=== PATIENT | female | born 1990 | race Caucasian/White ===

== ENCOUNTER 2019-09-07 08:15 | Inpatient (IN) | payer OTHER ==
[2019-09-07 09:17] VITALS: BMI 28.3
[2019-09-07 09:35] LABS: BASO % 0.4 % (0-2.0); EOS % 2.3 % (0-4.5); HEMOGLOBIN 11.9 GM/dL (10.7-15.3); MCH 32.4 pg (25.7-33.7); MCHC 34.1 g/dl (32.0-36.0); MEAN CELL VOLUME 94.8 fl (80-96); MEAN PLT VOLUME 8.5 fl (7.5-11.1); MONO % 8.4 % (3.8-10.2); NEUT % 70.9 % (42.8-82.8); PLATELET COUNT 129 K/MM3 (134-434); RBC 3.69 M/mm3 (3.60-5.2); RDW 13.9 % (11.6-15.6); WHITE BLOOD COUNT 6.7 K/mm3 (4.0-10.0)
[2019-09-07 09:46] LABS: INR 1.01 (0.83-1.09); PROTHROMBIN TIME (PATIENT) 11.9 SEC (9.7-13.0)
[2019-09-07 09:48] LABS: ACTIVATED PTT 31.6 SECONDS (25.2-36.5)
--- NOTE | 2019-09-07 10:00 | HP ---
Past Medical History - Admission Chief Complaint: for induction of labor; s/p IVF History Source: Patient Limitations to Obtaining History: No Limitations - Past Medical History ...: 2 ...Para: 1 ...Term: 1 ...: 0 ...Spon : 0 ...Induced : 0 ...Multiple Gestation: 0 ...LMP: 11/28/18 ... Weeks Gestation by Dates: 40.3 ...EDC by Dates: 09/04/19 - Past Surgical History Past Surgical History: Yes: None Hx Myomectomy: No Hx Transabdominal Cerclage: No - Smoking History Smoking history: Never smoked Have you smoked in the past 12 months: No - Alcohol/Substance Use Hx Alcohol Use: No - Social History Usual Living Arrangement: Yes: With Spouse Home Medications - Allergies Allergies/Adverse Reactions: Allergies Allergy/AdvReac Type Severity Reaction Status Date / Time No Known Allergies Allergy Verified 09/07/19 08:38 - Home Medications Home Medications: Ambulatory Orders Ascorbic Acid [Vitamin C -] 500 mg PO DAILY 09/07/19 Ferrous Sulfate [Iron] 325 mg PO DAILY 09/07/19 Pnv No.95/Ferrous Fum/Folic AC [ Formula] 1 each PO DAILY 09/07/19 Physical Exam - Maternity Vital Signs: Vital Signs Temperature 98.1 F 09/07/19 09:00 Pulse Rate 90 09/07/19 09:00 Respiratory Rate 20 09/07/19 09:00 Blood Pressure 127/73 09/07/19 09:00 O2 Sat by Pulse Oximetry (%) Constitutional: Yes: Well Nourished Eyes: Yes: WNL HENT: Yes: WNL Neck: Yes: WNL Cardiovascular: Yes: WNL Lungs: Normal air movement - Abdominal Exam/OB Number of Fetuses: Single Presentation: Vertex Contractions: No Monitor Mode: External Category: I Accelerations: Uniform Decelerations: None - Vaginal Exam/OB Vaginal Bleediing: No Speculum Exam: No Dilatation (cm): 1.5 cm Effacement (%): 40 Amniotic Membrane Status: Intact Presentation: Vertex/Position Station: -3 - Physical Exam Edema: Yes (1+ edema) - Labs Lab Results: CBC, BMP 09/07/19 09:25 Assessment/Plan at 40 2/7 days gestation, s/p IVF for induction cervidil placed of labor
[2019-09-07] MEDS ORDERED: DINOPROSTONE 10 MG VAGINAL SUPPOSITORY VG ONE ×2 (10:04→21:03)
[2019-09-07 10:09] LABS: BLOOD UREA NITROGEN 5.3 mg/dL (7-18); CALCIUM 8.3 mg/dL (8.5-10.1); CREATININE 0.5 mg/dL (0.55-1.3); POTASSIUM 3.7 mmol/L (3.5-5.1)
[2019-09-07] MEDS: ELECTROLYTE-148 SOLN 1,000 ML IV SCH (18:55)
--- NOTE | 2019-09-07 21:09 | PN ---
Progress Note (short form) - Note Progress Note: patient comfortable; c/o cramps but comfortable:; category one tracing reactive cervix=2-3 cm / 50% effaced/ -2 station I/P: doing well; latent stage of labor cervidil removed and replaced continue induction/ MIKAELA
--- NOTE | 2019-09-08 07:28 | PN ---
Progress Note (short form) - Note Progress Note: Attending note: patient comfortable during the nite; on second cervidil contractions q 4-5 minutes; tracing reactive, category one I/P: will continue with present cervidil continue MIKAELA
[2019-09-08] MEDS: ELECTROLYTE-148 SOLN 1,000 ML IV SCH (10:00)
--- NOTE | 2019-09-08 12:18 | PN ---
Progress Note (short form) - Note Progress Note: progress note: cervix= 3 cm; stretched to 4 cm/60%/_2 cervidil removed category one tracing still latent phase of labor I/P: will start Pitocin
[2019-09-08] MEDS ORDERED: OXYTOCIN 30 UNITS in 0.9% NS 30 UNIT/500 ML INFUS.BAG IVPB ONE (12:36)
[2019-09-08] MEDS: OXYTOCIN 30 UNITS in 0.9% NS 30 UNIT/500 ML INFUS.BAG IVPB SCH (13:15)
[2019-09-08] MEDS ORDERED: FENTANYL/BUPIVACAINE/NS/PF - PCEA - 50 ML DISP.SYRIN EP ONE ×2 (13:49→18:00)
[2019-09-08] MEDS ORDERED: PCA PUMP NR ONE (13:49)
[2019-09-08] MEDS ORDERED: FENTANYL/BUPIVACAINE/NS/PF - PCEA - 50 ML DISP.SYRIN EP SCH (15:15)
[2019-09-08] MEDS ORDERED: NALOXONE HCL 0.4 MG/ML VIAL IVPUSH PRN (15:30)
--- NOTE | 2019-09-08 17:32 | PN ---
Progress Note (short form) - Note Progress Note: patient requested and received epidural cervix= 4cm/ 60% effaced/-2 AROM of clear fluid category one tracing I/P: continue Pitocin
[2019-09-08] MEDS ORDERED: OXYTOCIN 20 UNITS in 0.9% NS 20 UNIT/1,000 ML INFUS.BAG IV ONE (20:59)
[2019-09-08] MEDS ORDERED: BISACODYL 10 MG SUPP.RECT RC PRN (23:21)
[2019-09-08] MEDS ORDERED: WITCH HAZEL 50% (TUCKS) 40 PAD/JAR PAD TP PRN (23:21)
[2019-09-08] MEDS ORDERED: METHYLERGONOVINE MALEATE 0.2 MG/1 ML AMP IM PRN (23:21)
[2019-09-08] MEDS ORDERED: BENZOCAINE 20% 57 GM BOTTLE TP PRN (23:21)
[2019-09-08] MEDS ORDERED: IBUPROFEN 600 MG TABLET (FP) PO PRN (23:21)
[2019-09-08] MEDS ORDERED: BENZOCAINE 28 GM HEMORRHOIDAL OINTMENT TP PRN (23:21)
--- NOTE | 2019-09-08 23:33 | PN ---
Delivery - Delivery Vaginal Delivery: No Problems Type of Anesthesia: Local, Epidural Episiotomy/Laceration: Perineal Extension/lac (small 1st degree perineal laceration) EBL (cc): 350 ( of live baby, =9-9; placenta complete; laceration repaired with 2-0 chromic undr local) Delivery, Single - [place] Feeding Plan Initial Plan: Elected not to breastfeed exclusively throughout hospitalization
[2019-09-09] MEDS: ACETAMINOPHEN 325 MG TABLET (FP) PO PRN ×2 (02:52→12:37)
[2019-09-09 08:55] LABS: BASO % 0.2 % (0-2.0); EOS % 0.1 % (0-4.5); HEMATOCRIT 30.9 % (32.4-45.2); HEMOGLOBIN 10.4 GM/dL (10.7-15.3); LYMPH % 8.7 % (8-40); MCHC 33.5 g/dl (32.0-36.0); MEAN CELL VOLUME 95.6 fl (80-96); MEAN PLT VOLUME 8.9 fl (7.5-11.1); MONO % 8.9 % (3.8-10.2); NEUT % 82.1 % (42.8-82.8); PLATELET COUNT 123 K/MM3 (134-434); RBC 3.24 M/mm3 (3.60-5.2); RDW 13.4 % (11.6-15.6); WHITE BLOOD COUNT 13.7 K/mm3 (4.0-10.0)
--- NOTE | 2019-09-09 12:57 | PN ---
Post Progress Note - Subjective Subjective: PPD#1: + antigen for herrera virus no complains abdomen soft, firm, non tender lochia normal I/P: doing well, s/p + covid-19 home in am Type of Delivery: Vital Signs: Vital Signs Temperature 98.7 F 09/09/19 10:00 Pulse Rate 85 09/09/19 10:00 Respiratory Rate 20 09/09/19 10:00 Blood Pressure 123/77 09/09/19 10:00 O2 Sat by Pulse Oximetry (%) 99 09/09/19 06:03 Uterus: Yes: Fundus Firm, Non-tender Lochia: Yes: Rubra Lochia, amount: Small Extremities: Yes: Calves non-tender Perineum: Yes: Laceration Activity: Ambulating (home in am; + covid-19) - Labs Labs: CBC WBC 13.7 K/mm3 (4.0-10.0) H 09/09/19 08:23 RBC 3.24 M/mm3 (3.60-5.2) L 09/09/19 08:23 Hgb 10.4 GM/dL (10.7-15.3) L 09/09/19 08:23 Hct 30.9 % (32.4-45.2) L 09/09/19 08:23 MCV 95.6 fl (80-96) 09/09/19 08:23 MCH 32.0 pg (25.7-33.7) 09/09/19 08:23 MCHC 33.5 g/dl (32.0-36.0) 09/09/19 08:23 RDW 13.4 % (11.6-15.6) 09/09/19 08:23 Plt Count 123 K/MM3 (134-434) L 09/09/19 08:23 MPV 8.9 fl (7.5-11.1) 09/09/19 08:23 Absolute Neuts (auto) 11.3 K/mm3 (1.5-8.0) H 09/09/19 08:23 Neutrophils % 82.1 % (42.8-82.8) 09/09/19 08:23 Lymphocytes % 8.7 % (8-40) D 09/09/19 08:23 Monocytes % 8.9 % (3.8-10.2) 09/09/19 08:23 Eosinophils % 0.1 % (0-4.5) D 09/09/19 08:23 Basophils % 0.2 % (0-2.0) 09/09/19 08:23 Nucleated RBC % 0 % (0-0) 09/09/19 08:23
--- NOTE | 2019-09-09 13:05 | DS ---
Physical Exam-SENIOR INFORMATION SYSTEMS ARCHITECT Vital Signs: Vital Signs Temperature 98.7 F 09/09/19 10:00 Pulse Rate 85 09/09/19 10:00 Respiratory Rate 20 09/09/19 10:00 Blood Pressure 123/77 09/09/19 10:00 O2 Sat by Pulse Oximetry (%) 99 09/09/19 06:03 Constitutional: Yes: Well Nourished Eyes: Yes: WNL HENT: Yes: WNL Neck: Yes: WNL Cardiovascular: Yes: WNL Respiratory: Yes: WNL ....Post : Yes: Uterus non-tender (doing well; s/p induction and ; + covoid -19 home in am f/u in office in 3-4 weeks) Labs: CBC, BMP 09/09/19 08:23 09/07/19 09:25 Delivery - Delivery Vaginal Delivery: No Problems Type of Anesthesia: Local, Epidural Episiotomy/Laceration: Midline, 2nd degree EBL (cc): 200 Delivery, Single - Stages of Labor Date 1st Stage Initiatied: 09/08/19 Date 2nd Stage Initiated: 09/08/19 Time 2nd Stage Initiated: 21:15 Date of Delivery: 09/08/19 Time of Delivery: 22:37 Time Placenta Delivered: 23:14 - Condition of [employer] Present: No Gender: Female Weight: 3.742 kg Position: Right, OA Total Hours ROM (Hrs/Mins): 6 - 1 Minute Total Score: 8 5 Minutes Total Score: 9 - Feeding Plan Initial Plan: Elected not to breastfeed exclusively throughout hospitalization Discharge Summary Problems reviewed: Yes Reason For Visit: INDUCTION OF LABOR + COVID-19 Procedures: Principal: Condition: Good - Instructions Diet, Activity, Other Instructions: regular diet Disposition: HOME - Home Medications Comprehensive Discharge Medication List: Ambulatory Orders Ascorbic Acid [Vitamin C -] 500 mg PO DAILY 09/07/19 Ferrous Sulfate [Iron] 325 mg PO DAILY 09/07/19 Pnv No.95/Ferrous Fum/Folic AC [ Formula] 1 each PO DAILY 09/07/19
[2019-09-09] MEDS: ELECTROLYTE-148 SOLN 1,000 ML IV SCH (19:58)
[2019-09-09] MEDS: OXYTOCIN 30 UNITS in 0.9% NS 30 UNIT/500 ML INFUS.BAG IVPB SCH (20:01)
[2019-09-09] MEDS ORDERED: SENNOSIDES/DOCUSATE COMBO (SENNA PLUS) TABLET (UD) PO PRN (22:00)
[2019-09-10 12:20] VITALS: BP 110/70; PULSE 72; TEMP 98.3
== END 2019-09-10 13:25 | disposition home or self-care (01) | DRG 805 ==
LOC: JLDR 08:15 → J3W 09-09 01:45
PROVIDERS: ADMIT Obstetrics & Gynecology; ATTEND Obstetrics & Gynecology
PROC: 10907ZC Drainage of Amniotic Fluid, Therapeutic from Products of Conception, Via Natural or Artificial Opening (ICD-10-PCS; principal; 2019-09-07)
PROC: 10E0XZZ Delivery of Products of Conception, External Approach (ICD-10-PCS; 2019-09-07)
PROC: 3E0P7VZ Introduction of Hormone into Female Reproductive, Via Natural or Artificial Opening (ICD-10-PCS; 2019-09-07)
PROC: 0HQ9XZZ Repair Perineum Skin, External Approach (ICD-10-PCS; 2019-09-07)
DX: O48.0 Post-term pregnancy (principal); U07.1 COVID-19; Z37.0 Single live birth; O98.53 Other viral diseases complicating the puerperium; O12.04 Gestational edema, complicating childbirth; O70.0 First degree perineal laceration during delivery; Z3A.40 40 weeks gestation of pregnancy
CPT/HCPCS: 36415; 59409; 80048; 85025; 85610; 85730; 86780; 86850; 86900; 86901; 87389; U0003